=== PATIENT | male | born 1965 | race Two or more races ===

== ENCOUNTER 2022-08-16 06:34 | Day surgery (SDC) | payer OTHER ==
[~2022-08-16] VITALS: Ht 185.4 cm; Wt 81.6 kg
== END 2022-08-16 12:05 | disposition home or self-care (01) ==
LOC: CIR.AMB 06:34
PROVIDERS: ATTEND Orthopaedic Surgery Hand Surgery
DX: M67.442 Ganglion, left hand (principal); R22.32 Localized swelling, mass and lump, left upper limb; Z20.822 Contact with and (suspected) exposure to COVID-19; E11.9 Type 2 diabetes mellitus without complications; E78.00 Pure hypercholesterolemia, unspecified; E78.3 Hyperchylomicronemia; D65 Disseminated intravascular coagulation [defibrination syndrome]; I10 Essential (primary) hypertension